=== PATIENT | male | born 1960 | race Caucasian/White ===

== ENCOUNTER 2017-06-08 10:05 | Emergency (ER) | payer OTHER ==
[~2017-06-08] VITALS: Ht 175.2 cm; Wt 99.8 kg
[~2017-06-08 10:05] MED LIST: A-CILLIN500 MG PO; AMLODIPINE BESYL5 MG PO; AMOXICILLIN500 MG PO; ASPI-COR81 M1 PO; ASPIRIN ADULT L81 M1 PO; ASPRIN/BUTALBIT1 TAB PO; BENADRYL50 MG PO; CLOPIDOGREL75 MG PO; COREG12.5 M1 PO; COREG3.125 MG PO; CORTISPORIN SOL10 M1; DAYPRO600 M1 PO; DECADRON4 MG PO; DEXAMETHASONE4 MG/M1 PO; EPI EZ PEN1 MG/ML IM; GOOD NEIGHBOR150 MG PO; HYDROCODONE BIT1 T11 PO; LISINOPRIL10 M1 PO; LISINOPRIL10 MG PO; LOPRESSOR; METOPROLOL25 MG PO; MOTRIN800 MG PO; NITROSTAT0.4 MG SL; OXYCODONE5 M1 PO; PEPCID20 MG PO; PERCOCET 325 MG1 TA2 PO; PRAVACHOL80 M1 GT; PREDNICOT20 MG PO; PREDNISONE10 MG PO; PRILOSEC20 M1 PO; Percocet 325 MG1 TAB PO; ZANTAC 300300 MG PO; ZESTRIL5 MG PO; ZITHROMAX Z PA250 MG PO; ZOCOR40 MG PO
[2017-06-08] MEDS ORDERED: CYCLOBENZAPRINE10 MG PO (11:47)
== END 2017-06-08 12:05 | disposition home or self-care (01) ==
LOC: ED 10:05
DX: M54.5 Low back pain (principal); G89.29 Other chronic pain; F17.200 Nicotine dependence, unspecified, uncomplicated; I10 Essential (primary) hypertension; I25.10 Atherosclerotic heart disease of native coronary artery without angina pectoris; Z88.8 Allergy status to other drugs, medicaments and biological substances; Z79.82 Long term (current) use of aspirin; Z79.899 Other long term (current) drug therapy

== ENCOUNTER 2018-06-24 22:06 | Emergency (ER) | payer OTHER ==
[~2018-06-24] VITALS: Ht 170.1 cm; Wt 99.8 kg
--- NOTE | ~2018-06-24 | EKG ---
[place], [place] ELECTROCARDIOGRAM REPORT NAME: JUDI REGALADO JR UNIT #: [id number] ROOM: DOCTOR: BENJY DRAFT REPORT BIRTHDATE: [address] [facility] Test Date: 2018-06-24 Test Time: 22:26:41 Pat Name: JUDI REGALADO Department: Room: Gender: Senior [employer] Developer: : 1960 Requested By: SHIRA REYNOLDS Order Number: [id number] Reading MD: Micheal Hurt MD Measurements Intervals [place] Rate: 56 P: 53 VA: 141 QRS: 25 QRSD: 105 T: 41 QT: 413 QTc: 399 Interpretive Statements Sinus rhythm Baseline wander in lead(s) V6 Electronically Signed On 06-25-2018 6:33:06 PST by Micheal Hurt MD CM:EKGRPT:ELECTROCARDIOGRAM REPORT [id number] SHIRA YANG DRAFT REPORT SHIRA REYNOLDS DO
[~2018-06-24 22:06] MED LIST changes: +CYCLOBENZAPRINE10 MG PO
[2018-06-24 22:38] LABS: BASO # 0.1 10*3/uL (0.0-0.1); BASO % 1.1 % (0.0-1.0); EOS # 0.2 10*3/uL (0.0-0.4); EOS % 2.2 % (1.0-4.0); HEMATOCRIT 40.7 % (42.0-52.0); HEMOGLOBIN 13.8 g/dl (14.0-18.0); LYMPH # 3.1 10*3/uL (1.3-4.4); LYMPH % 28.8 % (27.0-41.0); MEAN CORPUSCULAR HGB 33.9 pg (27.0-31.0); MEAN CORPUSCULAR HGB CONC 33.9 g/dl (33.0-37.0); MEAN PLATELET VOLUME 9.8 fl (9.6-12.3); MONO # 0.9 10*3/uL (0.1-1.0); MONO % 8.6 % (3.0-9.0); NEUT # 6.4 10*3/uL (2.3-7.9); PLATELET COUNT AUTOMATED 316 10*3/uL (130-400); RED BLOOD COUNT 4.07 10*6/uL (4.50-5.90); RED CELL DISTRI WIDTH 11.7 % (0-14.5); WHITE BLOOD COUNT 10.8 10*3/uL (4.8-10.8)
[2018-06-24 23:01] LABS: ALBUMIN 2.9 gm/dl (3.1-4.5); ALKALINE PHOSPHATASE 93 U/L (45-117); BUN 16 mg/dl (7-24); CHLORIDE 101 mmol/L (98-107); CREATININE 0.68 mg/dL (0.70-1.30); POTASSIUM 4.4 mmol/L (3.5-5.1); SGOT/AST 22 IU/L (3-35); SGPT/ALT 17 U/L (12-78); SODIUM 137 mmol/L (136-145); TOTAL PROTEIN 7.7 gm/dL (6.4-8.2)
[2018-06-24 23:02] LABS: TROPONIN I < 0.015 ng/ml (<0.045)
[2018-06-24] MEDS ORDERED: VIBRAMYCIN100 MG PO (23:28)
[2018-06-24] MEDS ORDERED: AUGMENTIN 875875 MG PO (23:28)
== END 2018-06-24 23:44 | disposition left against medical advice (07) ==
LOC: ED 22:06
PROVIDERS: Emergency Medicine
DX: J18.9 Pneumonia, unspecified organism (principal); I25.10 Atherosclerotic heart disease of native coronary artery without angina pectoris; E78.5 Hyperlipidemia, unspecified; K21.9 Gastro-esophageal reflux disease without esophagitis; E66.9 Obesity, unspecified; I25.2 Old myocardial infarction; F17.200 Nicotine dependence, unspecified, uncomplicated; Z88.8 Allergy status to other drugs, medicaments and biological substances; Z88.6 Allergy status to analgesic agent; Z79.899 Other long term (current) drug therapy; Z79.82 Long term (current) use of aspirin

== ENCOUNTER → 2018-11-10 | Emergency (ER) | payer OTHER ==
[~2018-11-10] VITALS: Ht 175.2 cm; Wt 90.7 kg
[~2018-11-10] MED LIST changes: +AUGMENTIN 875-875 MG PO; +AUGMENTIN 875875 MG PO; +DELTASONE20 M1 PO; +MUCINEX1200 M1 PO; +PREDNISONE50 MG PO; +PROAIR HFA8.5 GM INH; +TESSALON PERLE100 MG PO; +VIBRAMYCIN100 MG PO
== END ==
LOC: ED 14:37
DX: J01.00 Acute maxillary sinusitis, unspecified (principal); J01.10 Acute frontal sinusitis, unspecified; J20.9 Acute bronchitis, unspecified; I25.2 Old myocardial infarction; I10 Essential (primary) hypertension; I25.10 Atherosclerotic heart disease of native coronary artery without angina pectoris; F17.200 Nicotine dependence, unspecified, uncomplicated; Z88.8 Allergy status to other drugs, medicaments and biological substances; Z88.6 Allergy status to analgesic agent; Z79.2 Long term (current) use of antibiotics; Z79.899 Other long term (current) drug therapy; Z79.82 Long term (current) use of aspirin

== ENCOUNTER 2019-09-19 10:20 | Emergency (ER) | payer OTHER ==
[~2019-09-19] VITALS: Ht 175.2 cm; Wt 95.3 kg
[2019-09-19 11:28] LABS: BASO # 0.1 10*3/uL (0.0-0.1); BASO % 0.7 % (0.0-1.0); EOS # 0.1 10*3/uL (0.0-0.4); EOS % 0.5 % (1.0-4.0); HEMOGLOBIN 16.2 g/dl (14.0-18.0); LYMPH # 1.7 10*3/uL (1.3-4.4); MEAN CELL VOLUME 103.6 fl (80.0-94.0); MEAN CORPUSCULAR HGB 34.2 pg (27.0-31.0); MEAN CORPUSCULAR HGB CONC 33.1 g/dl (33.0-37.0); MEAN PLATELET VOLUME 9.6 fl (9.6-12.3); MONO # 1.1 10*3/uL (0.1-1.0); MONO % 10.8 % (3.0-9.0); NEUT # 7.1 10*3/uL (2.3-7.9); NEUT % 70.8 % (47.0-73.0); PLATELET COUNT AUTOMATED 193 10*3/uL (130-400); RED BLOOD COUNT 4.73 10*6/uL (4.50-5.90); RED CELL DISTRI WIDTH 12.4 % (0-14.5)
[2019-09-19 11:41] LABS: ACT PARTIAL THROMBO TIME 31.9 SECONDS (20.0-32.1)
[2019-09-19 11:43] LABS: ALKALINE PHOSPHATASE 90 U/L (45-117); BUN 19 mg/dl (7-24); CHLORIDE 101 mmol/L (98-107); CREATININE 0.96 mg/dL (0.70-1.30); LIPASE 41 U/L (73-393); POTASSIUM 4.3 mmol/L (3.5-5.1); SGOT/AST 13 IU/L (3-35); SGPT/ALT 21 U/L (12-78); SODIUM 134 mmol/L (136-145); TOTAL PROTEIN 8.4 gm/dL (6.4-8.2)
[2019-09-19 11:47] LABS: TROPONIN I < 0.015 ng/ml (<0.045)
[2019-09-19] MEDS ORDERED: ZITHROMAX250 MG PO (13:21)
[2019-09-19] MEDS ORDERED: PREDNISONE50 MG PO (13:21)
== END 2019-09-19 13:26 | disposition home or self-care (01) ==
LOC: ED 10:20
PROVIDERS: Emergency Medicine
DX: J20.9 Acute bronchitis, unspecified (principal); I10 Essential (primary) hypertension; K21.9 Gastro-esophageal reflux disease without esophagitis; E78.5 Hyperlipidemia, unspecified; I25.10 Atherosclerotic heart disease of native coronary artery without angina pectoris; G89.29 Other chronic pain; I25.2 Old myocardial infarction; E66.9 Obesity, unspecified; F17.200 Nicotine dependence, unspecified, uncomplicated; Z88.8 Allergy status to other drugs, medicaments and biological substances; Z79.2 Long term (current) use of antibiotics; Z79.899 Other long term (current) drug therapy; Z79.82 Long term (current) use of aspirin; Z68.30 Body mass index [BMI] 30.0-30.9, adult

== ENCOUNTER 2019-12-20 19:16 | Emergency (ER) | payer OTHER ==
[~2019-12-20] VITALS: Ht 175.2 cm; Wt 91.2 kg
[~2019-12-20 19:16] MED LIST changes: +ZITHROMAX250 MG PO
[2019-12-20 20:32] LABS: BASO # 0.1 10*3/uL (0.0-0.1); BASO % 0.7 % (0.0-1.0); EOS # 0.3 10*3/uL (0.0-0.4); EOS % 2.5 % (1.0-4.0); HEMATOCRIT 43.8 % (42.0-52.0); LYMPH # 2.8 10*3/uL (1.3-4.4); LYMPH % 24.9 % (27.0-41.0); MEAN CELL VOLUME 103.8 fl (80.0-94.0); MEAN CORPUSCULAR HGB 34.8 pg (27.0-31.0); MEAN CORPUSCULAR HGB CONC 33.6 g/dl (33.0-37.0); MEAN PLATELET VOLUME 9.7 fl (9.6-12.3); MONO # 0.7 10*3/uL (0.1-1.0); MONO % 6.2 % (3.0-9.0); NEUT # 7.2 10*3/uL (2.3-7.9); NEUT % 65.4 % (47.0-73.0); PLATELET COUNT AUTOMATED 193 10*3/uL (130-400); RED BLOOD COUNT 4.22 10*6/uL (4.50-5.90); RED CELL DISTRI WIDTH 13.1 % (0-14.5); WHITE BLOOD COUNT 11.1 10*3/uL (4.8-10.8)
[2019-12-20 20:47] LABS: ALBUMIN 3.7 gm/dl (3.1-4.5); ALKALINE PHOSPHATASE 75 U/L (45-117); BUN 12 mg/dl (7-24); CHLORIDE 107 mmol/L (98-107); CREATININE 0.67 mg/dL (0.70-1.30); LIPASE 44 U/L (73-393); SGOT/AST 16 IU/L (3-35); SGPT/ALT 25 U/L (12-78); SODIUM 138 mmol/L (136-145); TOTAL PROTEIN 7.5 gm/dL (6.4-8.2)
[2019-12-20 21:12] LABS: BILIRUBIN NEGATIVE (NEGATIVE); BLOOD TRACE-INTACT (NEGATIVE); CLARITY CLEAR (CLEAR); COLOR YELLOW (YELLOW); GLUCOSE NEGATIVE (NEGATIVE); KETONE NEGATIVE (NEGATIVE); LEUKO ESTERASE NEGATIVE (NEGATIVE); NITRITE NEGATIVE (NEGATIVE); PH 6.5 (5.0-9.0); SPECIFIC GRAVITY 1.015 (1.005-1.030); UROBILINOGEN 0.2 E.U./dl (0.2-1.0)
[2019-12-20 21:16] LABS: BACTERIA TRACE; WBC 0-2 wbc/hpf (0-5)
== END 2019-12-20 22:10 | disposition home or self-care (01) ==
LOC: ED 19:16
PROVIDERS: Emergency Medicine
DX: S30.1XXA Contusion of abdominal wall, initial encounter (principal); K21.9 Gastro-esophageal reflux disease without esophagitis; I10 Essential (primary) hypertension; I25.10 Atherosclerotic heart disease of native coronary artery without angina pectoris; I25.2 Old myocardial infarction; E78.5 Hyperlipidemia, unspecified; E66.9 Obesity, unspecified; G89.29 Other chronic pain; Z88.8 Allergy status to other drugs, medicaments and biological substances; Z79.899 Other long term (current) drug therapy; Z79.82 Long term (current) use of aspirin; Z68.34 Body mass index [BMI] 34.0-34.9, adult; Z87.891 Personal history of nicotine dependence; X50.1XXA Overexertion from prolonged static or awkward postures, initial encounter; Y93.89 Activity, other specified; Y92.89 Other specified places as the place of occurrence of the external cause; Y99.8 Other external cause status

== ENCOUNTER → 2020-03-30 | Outpatient (CLI) | payer OTHER | END | disposition home or self-care (01) | LOC: RAD 10:06 | PROVIDERS: ATTEND Family Medicine | DX: M47.817 Spondylosis without myelopathy or radiculopathy, lumbosacral region (principal); M47.816 Spondylosis without myelopathy or radiculopathy, lumbar region; M16.12 Unilateral primary osteoarthritis, left hip; M48.07 Spinal stenosis, lumbosacral region ==

== ENCOUNTER → 2020-05-24 | Outpatient (CLI) | payer OTHER | END | disposition home or self-care (01) | LOC: US 16:00 | PROVIDERS: ATTEND Family Medicine | DX: M79.2 Neuralgia and neuritis, unspecified (principal) ==

== ENCOUNTER 2021-12-10 19:32 | Emergency (ER) | payer OTHER | END 2021-12-10 21:23 | disposition home or self-care (01) | LOC: ED 19:32 | DX: S81.811A Laceration without foreign body, right lower leg, initial encounter (principal); Z79.899 Other long term (current) drug therapy; Z79.82 Long term (current) use of aspirin; Z88.8 Allergy status to other drugs, medicaments and biological substances; W45.8XXA Other foreign body or object entering through skin, initial encounter; Y93.89 Activity, other specified; Y92.89 Other specified places as the place of occurrence of the external cause; Y99.8 Other external cause status ==

== ENCOUNTER → 2021-12-20 | Outpatient (CLI) | payer OTHER | END | disposition home or self-care (01) | LOC: RAD 10:26 | PROVIDERS: ATTEND Nurse Practitioner Family | DX: R06.2 Wheezing (principal); J02.9 Acute pharyngitis, unspecified ==